=== PATIENT | male | born 1960 | race Caucasian/White ===

== ENCOUNTER 2022-12-01 07:17 | Day surgery (SDC) | payer BC ==
[~2022-12-01 07:17] MED LIST: Lactated Ringers 1,000 ML IV SCH; Lidocaine 1%/Sod Bicarbonate in NS 8.4% 1 ML Syringe IDERM PRN; Ondansetron 4 MG/2 ML SDV IVPUSH PRN; Sodium Chloride 0.9% 10 ML Syringe FLUSH PRN; Sodium Chloride 0.9% 10 ML Syringe FLUSH SCH
[2022-12-01] MEDS ORDERED: Propofol 200 MG/20 ML SDV ONE ×2 (07:58)
[2022-12-01] MEDS ORDERED: Midazolam 1 MG/ML 2 ML SDV ONE (07:58)
[2022-12-01] MEDS ORDERED: Lidocaine 1% 2 ML ONE (07:59)
== END 2022-12-01 09:55 | disposition home or self-care (01) ==
LOC: JD.SDS 07:17
PROVIDERS: ATTEND Surgery
DX: Z12.11 Encounter for screening for malignant neoplasm of colon (principal); K62.1 Rectal polyp; J20.9 Acute bronchitis, unspecified; E78.00 Pure hypercholesterolemia, unspecified; I10 Essential (primary) hypertension; M13.0 Polyarthritis, unspecified; M06.9 Rheumatoid arthritis, unspecified; M51.16 Intervertebral disc disorders with radiculopathy, lumbar region; Z98.890 Other specified postprocedural states; Z79.899 Other long term (current) drug therapy
CPT/HCPCS: 45380; J2250; J2704; J7120; 00812; J3490